=== PATIENT | male | born 1945 | race Caucasian/White ===

== ENCOUNTER 2022-08-30 05:56 | Observation (INO) ==
--- NOTE | 2022-08-08 11:59 | PAT Medication Instructions ---
Medication Instructions Date of Service August 08, 2022 Home Medications albuterol sulfate 90 mcg/actuation aerosol inhaler (Proventil HFA) 1 inh inhalation QID PRN SOB allopurinol 300 mg tablet 300 mg PO HS aspirin 81 mg capsule 81 mg PO HS finasteride 5 mg tablet 5 mg PO HS fluticasone propionate 50 mcg/actuation nasal spray,suspension 1 spray intranasal Q12H PRN Congestion montelukast 10 mg tablet (Singulair) 10 mg PO HS naproxen sodium 220 mg capsule (Aleve) 440 mg PO BID PRN Pain tamsulosin 0.4 mg capsule 0.4 mg PO HS ASK your surgeon for instructions naproxen sodium 220 mg capsule (Aleve) 440 mg PO BID PRN Pain Take morning of surgery OTHERWISE NOTHING TO EAT OR DRINK AFTER MIDNIGHT: albuterol sulfate 90 mcg/actuation aerosol inhaler (Proventil HFA) 1 inh inhalation QID PRN SOB (use if needed; please bring with you to hospital day of surgery if possible) fluticasone propionate 50 mcg/actuation nasal spray,suspension 1 spray intranasal Q12H PRN Congestion (if needed) Take evening before surgery albuterol sulfate 90 mcg/actuation aerosol inhaler (Proventil HFA) 1 inh inhalation QID PRN SOB (if needed) allopurinol 300 mg tablet 300 mg PO HS aspirin 81 mg capsule 81 mg PO HS (unless surgeon directed otherwise) finasteride 5 mg tablet 5 mg PO HS fluticasone propionate 50 mcg/actuation nasal spray,suspension 1 spray intranasal Q12H PRN Congestion (if needed) montelukast 10 mg tablet (Singulair) 10 mg PO HS tamsulosin 0.4 mg capsule 0.4 mg PO HS Other Notes If you have any questions please call us at [phone] or [phone] or [phone] or [phone]
--- NOTE | 2022-08-17 14:39 | Anesthesiology Consultation ---
Date of Service August 17, 2022 Assessment & Plan (1) Encounter for pre-operative examination: - Pt states he was advised by surgeon to stop aspirin, cannot recall how long. He was instructed to call surgeon's office, Darryl with surgeon's office also made aware and they will confirm with provider and contact patient with instructions. - Case discussed with Dr. Henriquez in detail who advised pt is acceptable to proceed, does not need PCP clearance/evaluation prior to surgery from his standpoint. - Outpatient joint assessment: Patient is currently scheduled for inpatient pathway. If re-evaluated pending system levels during current pandemic/surgeon requests outpatient pathway, patient is not acceptable candidate for outpatient joint program from anesthesia standpoint. Chart Review Chart Review: Acceptable Risk for Surgery and Patient seen in Pre Admission Testing Teaching & Discussion Pre-Anesthesia Teaching/Discussion Notes: Instructed NPO after midnight before surgery, except medications with 15 cc of water. Medication instructions provided according to the PAT guidelines. History Surgery Operation Date: 08/30/22 11:00 Proposed Procedures p Right Total Hip Arthroplasty - Breezy Lynch MD Height/Weight Height: 5 ft 7 in Weight: 68.946 kg Allergies Allergy/AdvReac Type Severity Reaction Status Date / Time No Known Allergies Allergy Verified 08/08/22 08:16 Medications Home Medications Medication Instructions Recorded Confirmed Last Taken albuterol sulfate 90 mcg/actuation 1 inh inhalation QID PRN SOB 08/08/22 08/08/22 Unknown aerosol inhaler (Proventil HFA) allopurinol 300 mg tablet 300 mg PO HS 08/08/22 08/08/22 Unknown aspirin 81 mg capsule 81 mg PO HS 08/08/22 08/08/22 Unknown finasteride 5 mg tablet 5 mg PO HS 08/08/22 08/08/22 Unknown fluticasone propionate 50 1 spray intranasal Q12H PRN 08/08/22 08/08/22 Unknown mcg/actuation nasal Congestion spray,suspension montelukast 10 mg tablet 10 mg PO HS 08/08/22 08/08/22 Unknown (Singulair) naproxen sodium 220 mg capsule 440 mg PO BID PRN Pain 08/08/22 08/08/22 Unknown (Aleve) tamsulosin 0.4 mg capsule 0.4 mg PO HS 08/08/22 08/08/22 Unknown Past Medical History Medical History (Updated 08/20/22 @ 08:20 by Deborah Boyd PA-C) Asthma rescue inhaler use bid, per pt due to pets in household and known allergies BPH (benign prostatic hyperplasia) Elevated cholesterol NO MEDS History of COVID-19 03/2022 > RESOLVED Hx of diverticulitis of colon Hx of gout Patient denies h/o stroke, seizures, heart attack, heart failure, DM, HTN, blood clots or blood transfusions. Exercise / Class Metabolic Activity II 4-5 Yardwork/Stairs/Walk up hill (denies chest discomfort or shortness of breath with 1 FOS) Past Family History Family History Other No family history of adverse response to anesthesia Past Surgical History Surgical History History of colon resection SIGMOID RESECTION R/T DIVERTICULITIS History of colonoscopy History of tonsillectomy History of tooth extraction Hx of vasectomy Past Anesthesia History No Hx of Anesthesia Complications and No Family Hx of Anesthesia Complications History of PONV No Hx of PONV and No Hx of Motion Sickness Social History Smoking Status: Never smoker Do You Dip or Chew Tobacco: No Hx Alcohol Use: No substance use type: does not use Review of Systems Patient denies chest pain, shortness of breath, dyspnea on exertion, snoring, witnessed apneas, reflux, fever, chills, cough, wheezing, or palpitations. Physical Exam Vital Signs Vitals BP 132/60 manual P 56 SP02 100% on RA RESP 17 Physical Full cervical extension range of motion without pain TMD 3.5 finger breadths Mallampati Score 3 Dentition: intact, several caps/crowns; denies chipped or loose teeth, caps/crowns, implants or bridges Lungs: normal respiratory effort. Good air movement, clear throughout to auscultation, no adventitious breath sounds Cardiac: regular rate and rhythm, no murmurs noted Carotid arteries: negative bruit bilat Lab Results Anesthesia Preop Results Results Anesthesia Widget: WBC 7.48 K/ul (4.8-10.8) 08/17/22 Hgb 16.2 g/dl (14.0-18.0) 08/17/22 Hct 46.1 % (40.1-51.0) 08/17/22 Plt 207 K/uL (130-400) 08/17/22 Na 140 mmol/L (136-145) 08/17/22 K 3.8 mmol/L (3.5-5.1) 08/17/22 Cl 106 mmol/L (98-107) 08/17/22 CO2 27 mmol/L (21-32) 08/17/22 BUN 25 mg/dl (6-23) H 08/17/22 Creat 0.99 mg/dl (0.6-1.4) 08/17/22 Glucose Level 107 mg/dl (70-99(Fasting)) H 08/17/22 PT 11.1 Seconds (9.0-12.0) 08/17/22 PTT 26.3 Seconds (21.0-31.0) 08/17/22 INR 1.0 (0.9-1.1) 08/17/22 HA1c 5.1 % (4.5-5.6) 08/17/22 Urine Color Yellow 08/17/22 Urine Appearance Clear (Clear) 08/17/22 Urine pH 5.0 (4.5-7.5) 08/17/22 Urine Specific [place] 1.023 (1.000-1.030) 08/17/22 Urine Protein Negative (Negative) 08/17/22 Urine Glucose (UA) Negative (Negative) 08/17/22 Urine Ketones Negative (Negative) 08/17/22 Urine Blood Negative (Negative) 08/17/22 Urine Nitrite Negative (Negative) 08/17/22 Urine Bilirubin Negative (Negative) 08/17/22 Urine Urobilinogen Negative (Negative) 08/17/22 Urine Leukocyte Esterase Negative (Negative) 08/17/22 Blood Type A Positive 08/17/22 Antibody Screen NEGATIVE 08/17/22 Testing Electrocardiogram Date: 08/20/22 Sinus bradycardia with frequent PVCs, rate 68 bpm COVID-19 Risk Screen Screening Information COVID-19 Screen Date: 08/17/22 Exposure 21 Days Family/Household +COVID Last 21 Days: No Exposure 10 Days Any COVID Exposure Last 10 Days: No Symptoms Last 10 Days Experienced COVID Sx Last 10 Days: No + COVID 0-90 Days COVID + in Last 0-90 Days: No
--- NOTE | 2022-08-21 09:09 | History & Physical Report ---
Date of Service August 21, 2022 Assessment & Plan (1) Osteoarthritis of right hip: Plan: PRE-OP Diagnosis: Right hip osteoarthritis Planned Procedure: Right total hip arthroplasty Plan: Patient is scheduled to undergo this procedure at the [facility] with a 23-hour observation admission with Dr. Lynch on August. Risks and complications of the procedure such as: Infection, bleeding, pain, scarring, nerve blood vessel damage, weakness, wound problems, stiffness, incomplete relief of symptoms, hardware failure, hardware loosening, wear, fracture, tendon or ligament injury, dislocation, leg length inequality, blood clots, Embolism, heart attack, stroke and were explained to the patient at her visit today. Informed consent to perform the procedure was obtained. Patient also understands risks of proceeding with surgical intervention during the COVID-19 pandemic. Currently patient is asymptomatic and he has not been in contact with anyone positive for the virus recently. Patient has an appointment to meet with anesthesia later this afternoon and while there will obtain CBC with differential, complete metabolic panel, PT/INR, blood type and screen, urinalysis, urine culture and sensitivity, EKG, hemog lobin A1c and a nasal culture for MRSA. Patient will also need preoperative medical clearance from their scalder and primary care provider. Patient states that he plans on doing in-home physical therapy for the first 1 to 2 weeks postoperatively. Patient states that he will most likely elect to do outpatient physical therapy at [facility]. Patient will need a walker, raised toilet seat, shower chair and a hip kit. During today's visit we reviewed the total hip packet as well as precautions. We discussed discharge planning from the hospital. I provided paperwork to obtain a handicap placard for their vehicle. We discussed lectures offered by [facility] in regards to joint replacement surgery via Zoom. I advised the patient that upon discharge from hospital we will prescribe a narcotic pain medication and anti-inflammatory. Patient will also be on an 81 mg aspirin twice daily for blood clot prevention. Patient will be scheduled for 2-week postoperative follow-up visit with myself on September 12 at 10:15 AM. At that visit we will Provide the patient with an order for outpatient physical therapy and rehab protocol. Patient verbalizes understanding of all information provided during today's visit. He thanks for the care that he received. If he has questions or concerns that should arise prior to his surgery, he will contact clinic. This chart was completed utilizing [employer] dictation voice recognition software. Grammatical errors, random word insertions, pronoun errors, and in complete sentences are an occasional consequence of the system. Any questions or concerns about the content, text, or information contained within the body of this dictation should be addressed directly to the physician for clarification. History of Present Illness Chief Complaint: Chief Complaint: Right hip pain Primary Care Provider: NO PCP History of Present Illness (including history relevant to procedure): This 77-year-old male presents to the clinic today for his preoperative history and physical. Patient complains of an approximate 3-year history of persistent right hip pain localized to his groin area. Patient states that he has noticed that he limps when he walks. He states he is seen an orthopedic provider near his home and had a few cortisone injections into his hip which only provided minor relief. He has tried using oral anti-inflammatory agents as well without significant pain relief. Patient states that he was an avid runner and has not been able to run for the past 2 years or so due to the pain that he is experiencing. He states that recently he has noticed some significant limitations with range of motion of his hip. Review Of Systems: A 12 point review of systems is performed and is unremarkable except for those things stated in the HPI and past medical history. Past Medical History: Problems: Asthma Procedure History Procedure Procedure Date Comments Sigmoid resection Tonsillectomy Varicose vein removal Bilateral inguinal hernia repair Bilateral cataract removal Vasectomy Allergies and Sensitivities: NKA Social history: Completely unremarkable Family history: Stroke Current Home Meds: (Last Updated 08/17 13:18) allopurinol (allopurinol 300 mg oral tablet) 300 mg PO Daily aspirin (Adult Aspirin) finasteride (finasteride 5 mg oral tablet) 5 mg PO Daily Women of childbearing age should not touch or handle broken tablets. - Louis Mayberry 08/03 10:45 fluticasone nasal (fluticasone 50 mcg/inh nasal spray) montelukast (montelukast 10 mg oral tablet) 10 mg PO qPM tamSULOsin (tamsulosin 0.4 mg oral capsule) 0.4 mg PO Daily Allergies Allergy/AdvReac Type Severity Reaction Status Date / Time No Known Allergies Allergy Verified 08/08/22 08:16 Home Medications Medication Instructions Recorded Confirmed Type albuterol sulfate 90 mcg/actuation 1 inh inhalation QID PRN SOB 08/08/22 08/08/22 History aerosol inhaler (Proventil HFA) allopurinol 300 mg tablet 300 mg PO HS 08/08/22 08/08/22 History aspirin 81 mg capsule 81 mg PO HS 08/08/22 08/08/22 History finasteride 5 mg tablet 5 mg PO HS 08/08/22 08/08/22 History fluticasone propionate 50 1 spray intranasal Q12H PRN 08/08/22 08/08/22 History mcg/actuation nasal Congestion spray,suspension montelukast 10 mg tablet 10 mg PO HS 08/08/22 08/08/22 History (Singulair) naproxen sodium 220 mg capsule 440 mg PO BID PRN Pain 08/08/22 08/08/22 History (Aleve) tamsulosin 0.4 mg capsule 0.4 mg PO HS 08/08/22 08/08/22 History Past Med/Surg History Medical History (Updated 08/21/22 @ 09:08 by Sunny Villa PA-C) Asthma rescue inhaler use bid, per pt due to pets in household and known allergies BPH (benign prostatic hyperplasia) Elevated cholesterol NO MEDS History of COVID-19 03/2022 > RESOLVED Hx of diverticulitis of colon Hx of gout Surgical History History of colon resection SIGMOID RESECTION R/T DIVERTICULITIS History of colonoscopy History of tonsillectomy History of tooth extraction Hx of vasectomy Family History Other No family history of adverse response to anesthesia Social History Smoking Status: Never smoker Second Hand Exposure: No; Hx Alcohol Use: No Preferred Language: Macedonian Grease Man Required: No Beliefs That Will Affect Care: None Current Living Situation: Spouse Feels Safe at Home: Yes Assistive Devices: Glasses Physical Exam Physical Exam: Physical Exam: (relevant to the procedure, including heart and lung evaluation) General: Alert and oriented x3 with proper grooming and hygiene Eyes: Pupils are equal and reactive to light with accommodation. Extraocular m ovements are intact Throat: Posterior oropharynx clear with absence of edema, erythema or exudate. Dentition is appropriate Cardiac: Regular rate and rhythm with no murmurs or gallops appreciated Lungs: Clear to auscultation throughout with no wheezing, rales or rhonchi Abdomen: Nonobese, nondistended, nontender with NABS Extremities: Right hip; flexion to 115 degrees, external rotation to 55 degrees and internal rotation to 10 degrees. Patient experiences tenderness to palpation in the groin area. Logroll test, Stinchfield test and straight leg raise test are all positive causing referred pain to the groin. Patient is neurovascular intact in the right lower extremity but does walk with a slight antalgic gait. Neuro: Cranial nerves II through XII are intact with no motor or sensory deficit Skin: Normal in appearance with no open skin areas or discharge Results & Data ([facility]) Diagnostic Findings Studies (relevant to the procedure): X-rays done include AP pelvis, false profile view, and cross-table lateral of the right hip. These show lateral joint space narrowing, subchondral sclerosis, and marginal osteophyte formation as well as a cam deformity. These findings are consistent with moderately severe osteoarthritis.
[2022-08-30] MEDS ORDERED: ceFAZolin 2000MG 2,000 MG/15 ML SYR IV SCH (06:00)
[2022-08-30] MEDS ORDERED: LR 60ML/HR IV SCH (06:00)
[2022-08-30] MEDS ORDERED: TRANEXAMIC ACID 1,000 MG **IV Pre-op IV SCH (06:00)
[2022-08-30] MEDS ORDERED: ROPIVACAINE 0.5% HCL/PF 150 MG, BUPIVACAINE 0.75% MPF 20 ML, EPINEPHrine 0.15 MG, Ketor... INFIL SCH (06:00)
[2022-08-30] MEDS ORDERED: ACETAMINOPHEN 500 MG TAB PO SCH (06:00)
[2022-08-30] MEDS ORDERED: LR 500ML BOLUS, THEN 15ML/HR IV SCH (06:00)
[2022-08-30] MEDS ORDERED: dexAMETHasone 4 MG TAB PO SCH (06:00)
[2022-08-30] MEDS ORDERED: FAMOTIDINE 20 MG TAB PO SCH (06:00)
[2022-08-30] MEDS ORDERED: traMADol HCL 50 MG TABLET PO SCH (06:00)
[2022-08-30] MEDS ORDERED: Scopolamine 1 MG TDSY TD SCH (06:00)
[2022-08-30] MEDS ORDERED: TRANEXAMIC ACID 1,000 MG **IV Intra-op IV SCH (06:00)
[2022-08-30] MEDS ORDERED: CeleBREX 200 MG CAP PO SCH ×2 (06:00→21:00)
[2022-08-30] MEDS ORDERED: BUPIVACAINE 0.5 % 5 MG/1 ML PF 10ML VIAL ONE (06:28)
[2022-08-30] MEDS ORDERED: PROPOFOL IV EMULSION 10 MG/ML 20 ML VIAL IV ONE (07:32)
[2022-08-30] MEDS ORDERED: MIDAZOLAM HCL 1 MG/ML 2ML VIAL ONE ×2 (07:32→09:00)
--- NOTE | 2022-08-30 08:33 | History & Physical Bridge Note ---
Date of Service August 30, 2022 History & Physical Bridge Note I have examined the patient, reviewed the History & Physical and in the interval since the performance of the History & Physical I have noted the following changes of clinical significance: no changes noted
[2022-08-30] MEDS ORDERED: ORTHO JOINT ANESTHETIC ONE (09:24)
[2022-08-30] MEDS ORDERED: ePHEDrine sulfate 50 MG/ML AMP ONE (09:47)
[2022-08-30] MEDS ORDERED: PHENYLEPHRINE HCL 10 MG/ML VIAL ONE (10:04)
--- NOTE | 2022-08-30 10:59 | Operative Report ---
Post Operative Report Pre & Post Diagnosis Operation Date: 08/30/22 08:50 Pre-Op Diagnosis: Right Hip Osteoarthritis Post-Op Diagnosis: Right Hip Osteoarthritis I identified the patient and participated in the time-out.: Yes Procedure Operation Date: 08/30/22 08:50 Actual Procedures p Right Total Hip Arthroplasty(Right) - Breezy Lynch MD Surgeon Breezy Lynch MD Hand Cooper Helper SUZANNA Villa PA-C. No resident or fellow was available to assist. Estimated Blood Loss 100 Findings Consistent with Post-Op Diagnosis Fluids 700 cc Specimens Right femoral head Anesthesia Type Spinal MAC Complications none Disposition Disposition: Recovery Room Indications 77-year-old male, with right hip osteoarthritis refractory to conservative management. X-rays demonstrate [id number] disease. I had a long discussion with him about the risks and benefits of surgery, alternatives to surgery, and expected outcomes. After reviewing all these elected proceed with surgery. All questions were answered. Informed consent was signed. Description of Procedure Patient was identified in the preoperative holding area where the surgical site, right hip, was marked. A spinal anesthetic was placed, then the patient was brought back to the main operating room, placed in the operating table and moved into the lateral decubitus position. Axillary roll was placed. All bony prominences were padded. Perioperative antibiotics and tranexamic acid 1 gram IV were administered. Operative extremity was prepped and draped in the normal sterile fashion. Prior to incision a multidisciplinary timeout was called. All in the room were in agreement. We began by making an incision for a posterior approach to the hip. We dissected down through subcutaneous tissues to the level of the fascia. The fascia was incised in line with the incision. Charnley bow was placed. Fatty tissue was reflected posteriorly off the back of the greater trochanter to expose the piriformis and short external rotators of the hip. The piriformis and short external rotators were dissected off the posterior aspect of the hip. A box cut was made in the capsule. Inferior hip capsule was released off the femur. The femoral head was dislocated. The femoral neck cut was made at our preoperative template. The acetabulum was then exposed. The labrum was sharply excised. Contents of the cotyloid fossa were removed with electrocautery. We then began reaming at a size 8 mm less than our preoperative template. We reamed up by [address] the way up to a size 58 mm cup. This gave us good bleeding cancellus bone circumferentially. The acetabulum was then irrigated out and dried. The real [place] Gription cup was then impacted down into position with 45 degrees of lateral opening and 25 degrees of anteversion. A single cancellous bone screw was placed up into the ilium. Excellent fixation was obtained. A trial liner for a 36 mm femoral head was then placed. Next we turned our attention to the femur. The lateral neck was removed with a box osteotome. Intramedullary guide was used followed by the lateralizing reamer. We then reamed up to a size 4 [place] stem. We then broached all the way up to a size 3. We began trialing with a high offset neck and a +5 head. Hip was reduced. Leg lengths were symmetric. The hip was stable in extension and external rotation, and stable in the sleeper position. At 90 degrees of hip flexion the hip could be internally rotated 65 degrees before levering out of the cup. I was very happy with the stability exam. Therefore the hip was dislocated and the femoral trial was removed. The acetabulum was re-exposed, and the trial liner was removed. An Altrx polyethylene liner for a 36 mm femoral head was then impacted into the shell. The locking mechanism was checked to ensure that it had engaged which it had. The femur was re-exposed. The femoral canal was irrigated and dried. The real size 3 high offset [place] femoral stem was opened up. This was impacted down into position. It sat at the same level as the femoral trial. Therefore the 36 mm ceramic femoral head with +5 mm offset was opened up and gently impacted down onto the trunnion. The hip was atraumatically reduced. Another 1 gram of IV tranexamic acid was started prior to closure. The wound was irrigated out with sterile Betadine solution. The periarticular injection cocktail was then placed. The short external rotators, piriformis, and posterior capsule were repaired through drill holes in the greater trochanter using #2 Vicryl. The fascia was run with a looped #1 PDS. The subcutaneous layer was closed with #1 PDS. The dermal layer was closed with 2-0 Vicryl. Zip line was used for the skin followed by a Silverlon dressing. A compressive dressing was then placed. The patient was then rolled supine. Leg lengths were rechecked and were symmetric. An abduction pillow was placed. Sedation was lifted and the patient was transferred to the recovery room in stable condition. Summary of implants: Depuy [place] Gription Acetabular Shell Sector Cup, 58 mm outer diameter [place] Cancellous bone screw, 6.5 x 35 mm [place]ly Altrx Polyethylene Acetabular Liner, Neutral, with a 36 mm inner diameter DePuy [place] Femoral stem with Por[place], 12/14 taper, size 3 high 36 mm ceramic femoral head with +5 offset Postoperative course: Patient will be admitted to the hospital overnight from the recovery room. Patient will be weightbearing as tolerated with posterior hip precautions. Aspirin for DVT prophylaxis I attest to the content of the Intraoperative Record and any orders documented therein. Any exceptions are noted below.
[2022-08-30] MEDS ORDERED: TAMSULOSIN HCL 0.4 MG CAP PO PRN (11:05)
[2022-08-30] MEDS ORDERED: bisacodyL 10 MG SUPP PR PRN (11:05)
[2022-08-30] MEDS ORDERED: NALOXONE HCL 0.4 MG/1 ML VIAL/CARP IV PRN (11:05)
[2022-08-30] MEDS ORDERED: ALUMINUM/MAGNESIUM SUSP 30 ML UDC PO PRN (11:05)
[2022-08-30] MEDS ORDERED: HYDROmorphone INJ 0.5 MG/0.5 ML SYR IV PRN (11:05)
[2022-08-30] MEDS ORDERED: METOCLOPRAMIDE HCL INJ 5 MG/ML 2 ML VIAL IV PRN (11:05)
[2022-08-30] MEDS ORDERED: diphenhydrAMINE 50 MG/ML VIAL IV PRN (11:05)
[2022-08-30] MEDS ORDERED: ONDANSETRON INJ 2 MG/ML 2 ML VIAL IV PRN (11:05)
[2022-08-30] MEDS ORDERED: MAGNESIUM HYDROXIDE SUSP 30 ML UDC PO PRN (11:05)
--- NOTE | 2022-08-30 11:05 | Operative Report ---
Post Operative Report Pre & Post Diagnosis Operation Date: 08/30/22 08:50 Pre-Op Diagnosis: Right Hip Osteoarthritis Post-Op Diagnosis: Right Hip Osteoarthritis I identified the patient and participated in the time-out.: Yes Procedure Operation Date: 08/30/22 08:50 Actual Procedures p Right Total Hip Arthroplasty(Right) - Breezy Lynch MD Surgeon Breezy Lynch MD Information Assurance Engineer SUZANNA Villa PA-C. No resident or fellow was available to assist. Estimated Blood Loss 100 Findings Consistent with Post-Op Diagnosis Specimens femoral head Description of Procedure I was present during the entire case assisting with positioning, prepping, draping, wound retraction, wound closure, dressing and abduction pillow placement. No fellow present. Please see Dr. Lynch procedure note for specifics of the case. I attest to the content of the Intraoperative Record and any orders documented therein. Any exceptions are noted below.
[2022-08-30] MEDS ORDERED: NON-FORMULARY MEDICATION (Naproxen Sodium [Aleve] 220 mg Capsule) PO PRN (11:08)
[2022-08-30] MEDS ORDERED: FLUTICASONE PROPIONATE NA SPR 16 GM BTL PRN (11:08)
[2022-08-30] MEDS ORDERED: ALBUTEROL HFA 8 GM INHALER INH PRN (11:24)
--- NOTE | 2022-08-30 13:25 | XRay Report ---
XR pelvis 1-2V routine CLINICAL HISTORY: Postoperative evaluation. COMPARISON: Pelvis radiograph August 17, 2022. FINDINGS: Alignment of the total right hip arthroplasty is anatomic. There is no periprosthetic frac ture. Acetabular screw is noted. Incidental note is made of suspected postoperative findings from her susana repairs. There are no unexpected radiopaque foreign bodies. IMPRESSION: Expected findings following total right hip arthroplasty. ACT 112: Negative or not required by law. Electronically signed by: Ranjeet Dhaliwal M.D. 08/30/2022 1:24 PM
--- NOTE | 2022-08-30 13:31 | Anesthesiology Progress Note ---
Date of Service August 30, 2022 Anesthesia Post Procedure Vital Signs Vital Signs: Temp Pulse Resp BP Pulse Ox O2 Del Method O2 Flow Rate 08/30/22 13:00 36.3 C L 68 19 100/62 97 Room Air 08/30/22 13:20 80 18 105/62 96 Room Air 08/30/22 12:45 36.3 C L 73 18 108/58 L 73 L Room Air 08/30/22 12:40 82 22 98/67 L 82 L Room Air 08/30/22 12:30 74 24 100/63 98 Room Air 08/30/22 12:20 77 25 H 105/62 97 Room Air 08/30/22 12:10 77 17 98/43 L 98 Room Air 08/30/22 12:00 82 15 96/57 L 94 Room Air 08/30/22 11:50 84 20 102/71 97 Room Air 08/30/22 11:30 88 18 104/61 100 Oxymask 4 08/30/22 11:20 82 12 105/56 L 98 Oxymask 4 08/30/22 11:40 76 24 100/52 L 99 Oxymask 4 08/30/22 11:10 75 12 94/51 L 99 Oxymask 5 08/30/22 11:04 36.0 C L 72 14 88/48 L 98 Oxymask 5 08/30/22 06:48 36.4 C L 72 22 127/78 97 Room Air 08/30/22 06:48 Room Air Transfer of Care Handoff Completed per policy Notes Mental Status: alert / awake / arousable and participated in evaluation Nausea / Vomiting: adequately controlled Pain: adequately controlled Airway Patency, RR, SpO2: stable & adequate BP & HR: stable & adequate Hydration State: stable & adequate Neuraxial Anesthesia: was administered and sensory block is resolving Anesthetic Complications: no major complications apparent and Pt Satisfied with anesthetic care
[2022-08-30] MEDS: SODIUM CHLORIDE 0.9% 1000ML 1,000 ML IV SCH ×2 (14:24→21:16)
[2022-08-30] MEDS: ACETAMINOPHEN 500 MG TAB PO SCH ×2 (14:32→21:21)
[2022-08-30] MEDS: KETOROLAC TROMETHAMINE 15 MG/ML VIAL IV SCH ×2 (14:33→20:02)
[2022-08-30] MEDS: Scopolamine CHECK PATCH PLACEMENT SCH ×2 (15:17→23:49)
[2022-08-30] MEDS: oxyCODONE HCL IR 5 MG TAB (IMMEDIATE RELEASE) PO PRN (16:54)
[2022-08-30] MEDS ORDERED: TRANEXAMIC ACID / 0.7% NACL 1,000 MG/100 ML BAG IV SCH (17:15)
[2022-08-30] MEDS: ceFAZolin 2000MG 2,000 MG/15 ML SYR IV SCH (17:25)
[2022-08-30] MEDS ORDERED: allopurinoL 300 MG TAB PO SCH (21:00)
[2022-08-30] MEDS ORDERED: MONTELUKAST SODIUM 10 MG TABLET PO SCH (21:00)
[2022-08-30] MEDS ORDERED: TAMSULOSIN HCL 0.4 MG CAP PO SCH (21:00)
[2022-08-30] MEDS ORDERED: SENNA 8.6 MG TAB PO SCH (21:00)
[2022-08-30] MEDS ORDERED: FINASTERIDE 5 MG TAB PO SCH (21:00)
[2022-08-30] MEDS: DOCUSATE SODIUM 100 MG CAP PO SCH (21:11)
[2022-08-31] MEDS: KETOROLAC TROMETHAMINE 15 MG/ML VIAL IV SCH ×2 (02:09→07:38)
[2022-08-31] MEDS: oxyCODONE HCL IR 5 MG TAB (IMMEDIATE RELEASE) PO PRN (02:12)
[2022-08-31] MEDS: ceFAZolin 2000MG 2,000 MG/15 ML SYR IV SCH (02:40)
[2022-08-31] MEDS: ACETAMINOPHEN 500 MG TAB PO SCH ×2 (06:00→13:33)
[2022-08-31 06:24] LABS: Basophils # (auto) 0.01 K/uL (0-0.2); Basophils % (auto) 0.1 %; Hematocrit (blood only) 33.1 % (42.0-52.0); Hemoglobin 11.9 g/dl (14.0-18.0); Immature Granulocytes # (auto) 0.07 K/uL (0.01-0.20); Immature Granulocytes % (auto) 0.5 %; Lymphocytes # (auto) 0.85 K/uL (1.2-3.4); Lymphocytes % (auto) 6.1 %; Mean Corpuscular Hemoglobin 31.4 pg (25.0-34.0); Mean Corpuscular Volume 87.3 fL (80.0-100.0); Monocytes # (auto) 1.01 K/uL (0.11-0.59); Monocytes % (auto) 7.2 %; Neutrophils # (auto) 12.01 K/uL (1.40-6.50); Neutrophils % (auto) 86.1 %; Platelet Count 174 K/uL (130-400); RDW Coefficient of Variation 12.9 % (11.5-14.5); Red Blood Count 3.79 M/uL (4.70-6.10); White Blood Count 13.95 K/ul (4.8-10.8)
[2022-08-31 06:48] LABS: Calcium 8.3 mg/dl (8.5-10.1); Potassium 4.5 mmol/L (3.5-5.1)
[2022-08-31 06:53] LABS: BUN Creatinine Ratio 22.3 (10-20); Creatinine Clr Calc Pharmacy 44.7 ml/min; Est GFR (African American) 65.6 ml/min; Est GFR (Non-African American) 56.6 ml/min
[2022-08-31] MEDS: Scopolamine CHECK PATCH PLACEMENT SCH (07:40)
[2022-08-31] MEDS: DOCUSATE SODIUM 100 MG CAP PO SCH (07:41)
[2022-08-31] MEDS ORDERED: dexAMETHasone 4 MG TAB PO SCH (08:00)
[2022-08-31] MEDS ORDERED: ASPIRIN 81 MG ECTAB PO SCH (09:00)
[2022-08-31] MEDS ORDERED: NON-FORMULARY MEDICATION (Aspirin 81 mg Capsule) PO SCH (09:00)
[2022-08-31] MEDS ORDERED: MULTIVITAMIN TAB PO SCH (09:00)
--- NOTE | 2022-08-31 09:32 | Orthopedic Progress Note ---
Date of Service August 31, 2022 Assessment & Plan (1) S/P total hip arthroplasty: Plan: Total hip precautions reviewed Weightbearing as tolerated with walker assistance PT/OT Ice with easy wrap DVT prophylaxis with aspirin and CARMENCITA stockings Pain control with p.o. medication Keep Silverlon dressing in place until 2-week follow-up Abduction pillow use for the first 6 weeks postoperatively. Plan is discharged home later today with in-home physical therapy Follow-up at [facility] orthopedics as previously scheduled With questions contact our clinic at [phone] Admission and Anticipated Discharge Date Admission Date: August 30, 2022 Subjective This 77-year-old male is seen today day 1 status post right total hip arthroplasty. Patient is doing very well. He states that his only issue last night is that he had to get up every hour to urinate. He states that he has some slight pain in his buttock but denies any groin pain at present. Currently he denies chest pain, shortness of breath, fever, chills, sweats, nausea, vomiting or numbness or tingling in his right lower extremity. Review of Systems Review of Systems: All systems reviewed & are unremarkable except as noted in Subjective Physical Exam Physical Exam: Right hip: Outer dressing was removed. Silverlon is clean dry and intact. Patient is able to perform an active straight leg raise test. He is able to actively dorsi and plantarflex foot. He was seated on the edge of his bed and transition from a seated to a standing position and walked around the room with the aid of his walker without any difficulty. He tolerated light passive hip flexion to 90 degrees but had some twinges of pain with light passive internal and external hip rotation. Patient is neurovascularly intact in the right lower extremity. Quad strength is 4 out of 5. Results & Data ([facility]) Vital Signs (Past 12 Hours) Vital Signs Temp Pulse Resp BP Pulse Ox O2 Del Method 08/31/22 07:34 36.7 C 63 18 102/45 L 97 Room Air 08/31/22 03:30 36.4 C L 72 20 119/57 L 97 Room Air 08/30/22 23:00 36.3 C L 55 L 20 100/56 L 98 Room Air Diagnostic Findings Laboratory Results WBC 13.95 K/ul (4.8-10.8) H 08/31/22 05:50 RBC 3.79 M/uL (4.70-6.10) L 08/31/22 05:50 Hgb 11.9 g/dl (14.0-18.0) L 08/31/22 05:50 Hct 33.1 % (42.0-52.0) L 08/31/22 05:50 MCV 87.3 fL (80.0-100.0) 08/31/22 05:50 MCH 31.4 pg (25.0-34.0) 08/31/22 05:50 MCHC 36.0 g/dL (32.0-36.0) 08/31/22 05:50 RDW Std Deviation 41.0 fL (36.4-46.3) 08/31/22 05:50 RDW Coeff of Ezequiel 12.9 % (11.5-14.5) 08/31/22 05:50 Plt Count 174 K/uL (130-400) 08/31/22 05:50 MPV 10.0 fL (9.4-12.4) 08/31/22 05:50 Immature Gran % (Auto) 0.5 % 08/31/22 05:50 Neut % (Auto) 86.1 % 08/31/22 05:50 Lymph % (Auto) 6.1 % 08/31/22 05:50 Mcpherson % (Auto) 7.2 % 08/31/22 05:50 Eos % (Auto) 0.0 % 08/31/22 05:50 Baso % (Auto) 0.1 % 08/31/22 05:50 Neut # (Auto) 12.01 K/uL (1.40-6.50) H 08/31/22 05:50 Lymph # (Auto) 0.85 K/uL (1.2-3.4) L 08/31/22 05:50 Mcpherson # (Auto) 1.01 K/uL (0.11-0.59) H 08/31/22 05:50 Eos # (Auto) 0.00 K/uL (0-0.50) 08/31/22 05:50 Baso # (Auto) 0.01 K/uL (0-0.2) 08/31/22 05:50 Immature Gran # (Auto) 0.07 K/uL (0.01-0.20) 08/31/22 05:50 Sodium 138 mmol/L (136-145) 08/31/22 05:50 Potassium 4.5 mmol/L (3.5-5.1) 08/31/22 05:50 Chloride 110 mmol/L (98-107) H 08/31/22 05:50 Carbon Dioxide 22 mmol/L (21-32) 08/31/22 05:50 Anion Gap 6 (3-11) 08/31/22 05:50 BUN 27 mg/dl (6-23) H 08/31/22 05:50 Creatinine 1.21 mg/dl (0.6-1.4) 08/31/22 05:50 Est Cr Clr Drug Dosing 44.7 ml/min 08/31/22 05:50 Est GFR ( Amer) 65.6 ml/min 08/31/22 05:50 Est GFR (Non-Af Amer) 56.6 ml/min 08/31/22 05:50 BUN/Creatinine Ratio 22.3 (10-20) H 08/31/22 05:50 Glucose 126 mg/dl (70-99(Fasting)) H 08/31/22 05:50 Calcium 8.3 mg/dl (8.5-10.1) L 08/31/22 05:50 SARS-CoV-2, RNA, NAAT NEGATIVE (NEGATIVE) 08/30/22 06:38 Impressions Pelvis X-Ray 08/30/22 11:05 XR pelvis 1-2V routine CLINICAL HISTORY: Postoperative evaluation. COMPARISON: Pelvis radiograph August 17, 2022. FINDINGS: Alignment of the total right hip arthroplasty is anatomic. There is no periprosthetic fracture. Acetabular screw is noted. Incidental note is made of suspected postoperative findings from hernia repairs. There are no unexpected radiopaque foreign bodies. IMPRESSION: Expected findings following total right hip arthroplasty. ACT 112: Negative or not required by law. Electronically signed by: Ranjeet Dhaliwal M.D. 08/30/2022 1:24 PM
--- NOTE | 2022-08-31 09:41 | Discharge Summary ---
Date of Service August 31, 2022 Admission HPI Per Admitting Provider History of Present Illness (including history relevant to procedure): This 77-year-old male presents to the clinic today for his preoperative history and physical. Patient complains of an approximate 3-year history of persistent right hip pain localized to his groin area. Patient states that he has noticed that he limps when he walks. He states he is seen an orthopedic provider near his home and had a few cortisone injections into his hip which only provided minor relief. He has tried using oral anti-inflammatory agents as well without significant pain relief. Patient states that he was an avid runner and has not been able to run for the past 2 years or so due to the pain that he is experiencing. He states that recently he has noticed some significant limitations with range of motion of his hip. Review Of Systems: A 12 point review of systems is performed and is unremarkable except for those things stated in the HPI and past medical history. Past Medical History: Problems: Asthma Procedure History Procedure Procedure Date Comments Sigmoid resection Tonsillectomy Varicose vein removal Bilateral inguinal hernia repair Bilateral cataract removal Vasectomy Allergies and Sensitivities: NKA Social history: Completely unremarkable Family history: Stroke Current Home Meds: (Last Updated 08/17 13:18) allopurinol (allopurinol 300 mg oral tablet) 300 mg PO Daily aspirin (Adult Aspirin) finasteride (finasteride 5 mg oral tablet) 5 mg PO Daily Women of childbearing age should not touch or handle broken tablets. - Louis Mayberry 08/03 10:45 fluticasone nasal (fluticasone 50 mcg/inh nasal spray) montelukast (montelukast 10 mg oral tablet) 10 mg PO qPM tamSULOsin (tamsulosin 0.4 mg oral capsule) 0.4 mg PO Daily Admission Exam Per Admitting Provider Physical Exam: (relevant to the procedure, including heart and lung evaluation) General: Alert and oriented x3 with proper grooming and hygiene Eyes: Pupils are equal and reactive to light with accommodation. Extraocular movements are intact Throat: Posterior oropharynx clear with absence of edema, erythema or exudate. Dentition is appropriate Cardiac: Regular rate and rhythm with no murmurs or gallops appreciated Lungs: Clear to auscultation throughout with no wheezing, rales or rhonchi Abdomen: Nonobese, nondistended, nontender with NABS Extremities: Right hip; flexion to 115 degrees, external rotation to 55 degrees and internal rotation to 10 degrees. Patient experiences tenderness to palpation in the groin area. Logroll test, Stinchfield test and straight leg raise test are all positive causing referred pain to the groin. Patient is neurovascular intact in the right lower extremity but does walk with a slight antalgic gait. Neuro: Cranial nerves II through XII are intact with no motor or sensory deficit Skin: Normal in appearance with no open skin areas or discharge Principal Diagnosis Right hip osteoarthritis Discharge Exam Right hip: Outer dressing was removed. Silverlon is clean dry and intact. Patient is able to perform an active straight leg raise test. He is able to actively dorsi and plantarflex foot. He was seated on the edge of his bed and transition from a seated to a standing position and walked around the room with the aid of his walker without any difficulty. He tolerated light passive hip flexion to 90 degrees but had some twinges of pain with light passive internal and external hip rotation. Patient is neurovascularly intact in the right lower extremity. Quad strength is 4 out of 5. Discharge Data Allergies Allergy/AdvReac Type Severity Reaction Status Date / Time shellfish derived Allergy Intermediate Verified 08/30/22 06:42 Procedures Performed Operation Date: 08/30/22 08:50 Actual Procedures p Right Total Hip Arthroplasty(Right) - Breezy Lynch MD Hospital Course (1) S/P total hip arthroplasty: Patient had an uneventful overnight stay following right total hip arthroplasty. He is very pleased with the results of his surgery. His pain is well controlled with p.o. pain medication. Plan is to discharge home later today with in-home physical therapy for the first 2 weeks postoperatively. Total hip precautions reviewed Weightbearing as tolerated with walker assistance PT/OT Ice with easy wrap DVT prophylaxis with aspirin and CARMENCITA stockings Pain control with p.o. medication Keep Silverlon dressing in place until 2-week follow-up Abduction pillow use for the first 6 weeks postoperatively. Plan is discharged home later today with in-home physical therapy Follow-up at [facility] orthopedics as previously scheduled With questions contact our clinic at [phone] Total Time Total Time Spent Total Time Spent (In Minutes): 20 mins Discharge Plan Discharge Items Patient Disposition: Home - Home Health Services Reason For Visit: POST SURGICAL CARE Discharge Diagnosis: Right hip osteoarthritis Activity: As commented below Lifting: None Bathing: Keep incision dry Bathing Comment: May shower tomorrow Sexual Activity: Wait until after follow-up appointment Exercise/Sports: Wait until after follow-up appointment Driving/Machine Use: No driving until cleared by application development specialist Weightbearing: Right weightbearing Weightbearing Comment: As tolerated with walker assistance Non-emergency contact: Surgeon Call non-emergency contact if: you have any medication questions, your pain is not controlled, your temperature is above 101.5, your wound has increased drainage and your wound pain has increased Follow-up/Referrals: Karla Jose PA-C [Primary Care Provider] - Diet: Regular Addtl Attending Provider Instructions: Post-operative Instructions Dear Patient and Family/Friends, Before you are discharged from the hospital, it is important to know what to expect when you get home after surgery. To that end, we have created this sheet of discharge instructions which covers many commonly asked questions. Make sure you go through this sheet in its entirety with your nurse before you are discharged. Please note that we will go over the specifics of your surgery and recovery when you return for your first post-operative visit. Sincerely, Dr. Lynch Medications 1. Oxycodone 5 mg tablet: Take 1-2 tabs every 4-6 hours as needed for pain control. A prescription will be sent to your pharmacy for this medication. 2. Diclofenac sodium 75 mg tablet: Take 1 tab twice daily for the first 30 days postoperatively. A prescription will be sent to your pharmacy with 1 refill. 3. Aspirin 81 mg tablet: Take 1 tab twice daily for the first 30 days postoperatively for blood clot prevention. 4. Extra strength Tylenol 500 mg tablet: Take 2 tabs every 6-8 hours as needed for additional pain relief. Please purchase this medication. Pain Expect to be in a fair amount of pain after surgery. Remember, our goal is not to eliminate your pain, but to make it tolerable. It is a good idea to stay ahead of your pain by taking the medications you were prescribed once you get home. Typically, the pain starts improving 3-7 days after surgery. You should start weaning off the narcotic pain medication (oxycodone, hydrocodone, hydromorphone, morphine) as soon as your pain improves. Please call our office if your pain is not adequately controlled. Ice Ice your operative site at least 5 times a day for 15-30 minutes at a time. Make sure you have a thin cloth between the ice or cooling unit and your skin to prevent stewart bite. This is especially important if you received a nerve block. Continue icing your operative site for the first 5-7 days after surgery, then as needed. Diet/Nausea/Vomiting Start by drinking clear liquids and eating crackers. If you can tolerate this, then you may resume your normal diet. If you feel nauseated or vomit, take Zofran/ondansetron (if prescribed). Please call our office if you have intractable nausea or vomiting, or, if after hours, you may go to the Emergency Room for help. Constipation Constipation is a common side effect of narcotic pain medication. If you have not had a bowel movement within 2 days after surgery, we recommend purchasing an over the counter laxative such as Milk of Magnesia, Dulcolax, or Miralax from a local pharmacy, and taking it as instructed. Call our clinic if any questions. Slings and Braces If you were placed in a sling or brace, it must be worn at all times, including sleep. You may remove your sling or brace for physical therapy, home exercises, and showering. The length of time you will be in your brace and range of motion restrictions depends on what surgery you had; these details will be reviewed at your first post-operative appointment. Nerve block The anesthesia team sometimes places a nerve block to help with post-operative pain control. This results in significant numbness and inability to move the extremity. The nerve block usually wears off in 8-12 hours, but sometimes can last up to 24 hours. Please call our office if you are still unable to move your extremity after 24 hours, unless you received a pain pump to take home. Nerve blocks typically wear off quickly, so start taking pain medication as soon as you start feeling soreness near your surgical site. Weight bearing and Range of Motion. Do not bear any weight through your operative extremity immediately after surgery. If you had upper extremity surgery, do not lift anything with that arm. If you are in a knee brace, keep it locked in place until your follow-up. We will discuss your weight bearing, range of motion, and lifting restrictions in detail at your first post-operative appointment. Continuous Passive Motion (CPM) Machine If you were prescribed a CPM machine, it will start after your first post- operative appointment, at which time we will give you instructions on the range of motion settings and duration of treatment Physical therapy You will be given a prescription for physical therapy or occupational therapy at your first post-operative appointment. Typically, patients start therapy within 1 week of surgery Wound care and showering We will inspect your wound at your first post-operative visit, and may do a dressing change at that time. Most patients will be in a water-proof dressing that is removed 14 days after surgery. It is normal to see some dried blood on the dressing. Do not remove your dressing, paper strips or sutures yourself unless you are given permission. Showering is allowed the day after surgery. Do not scrub or remove any dressings. The wound should not be submerged underwater (i.e. in a bathtub or pool) until 4 weeks after surgery CARMENCITA stockings If you were given white stockings, these are to be worn at all times except to shower (on both legs) for the first 2 weeks after surgery. Driving You may not drive while taking narcotic pain medication or while in a cast, splint, sling or brace. You, the patient, need to make the final determination about when you are safe to drive, however, the earliest you may consider driving after surgery is below: Hand/Wrist/Elbow Surgery: 3 days Shoulder Surgery: 2 weeks Hip,/Knee/Ankle Surgery: 4 weeks Fracture repair: 6 weeks Return to Work Your return to work depends on what surgery was done and what type of work you do. Please bring any paperwork your employer needs completed to your first pos t-operative visit. Also, bring a description of your job duties, as this helps us to understand what risks you may face at work. Travel Avoid long distance travel (greater than 1 hour) in airplanes and cars for the first 6 weeks after surgery. If you must travel, you need to have a Doppler ultrasound done before you travel to rule out a blood clot in your legs. Follow-up You should have a follow-up appointment already scheduled 1-2 days after surgery. If not, please contact our office to make this appointment before you leave the hospital. When to call the office It is normal to have swelling and bruising in the limb that was operated on. This will improve with time. It is also normal to have fevers for the first 2 days after surgery. Reasons you should call your doctor include: Uncontrolled pain; Nausea, vomiting, or constipation that does not improve with medication; Fevers over 101.5, chills, sweats; Drainage or bleeding from the wound; Foul odor; Spreading areas of redness; Any other concerns Pending Studies at Discharge: No Stand-Alone Forms: My [facility] Medications and DC Order Prescriptions: New acetaminophen [Tylenol Extra Strength] 500 mg Tablet 1,000 mg PO Q8 30 Days Qty: 180 0RF oxycodone 5 mg Tablet 5 - 10 mg PO Q4H PRN (Reason: Postoperative pain control) Qty: 28 0RF diclofenac sodium 75 mg tablet,delayed release (DR/EC) 75 mg PO BID 30 Days Qty: 60 1RF Continued tamsulosin [Flomax] 0.4 mg Capsule 0.4 mg PO HS montelukast [Singulair] 10 mg Tablet 10 mg PO HS allopurinol 300 mg Tablet 300 mg PO HS albuterol sulfate [Proventil HFA] 90 mcg/actuation Hfa Aerosol Inhaler 1 inh INHALATION QID PRN (Reason: SOB) fluticasone propionate 50 mcg/actuation Prince,Suspension 1 spray INTRANASAL Q12H PRN (Reason: Congestion) Rx Instructions: administer into each nostril finasteride [Proscar] 5 mg Tablet 5 mg PO HS Changed aspirin 81 mg Capsule 81 mg PO BID 30 Days Qty: 60 0RF Discontinued naproxen sodium [Aleve] 220 mg Capsule 440 mg PO BID PRN (Reason: Pain) Admission Data Admit Date/Time: 08/30/22 11:05 Attending Provider: Breezy Lynch Admit Provider: Breezy Lynch Primary Care Provider: Karla Jose Other Providers: [facility],[facility]
== END 2022-08-31 15:04 | disposition home health service (06) ==
LOC: ASU 05:56 → PACUINP 05:56 → 3E 14:05